=== PATIENT | male | born 1955 | race Two or more races ===

== ENCOUNTER 2019-10-09 20:29 | Emergency (ER) | payer MEDICAID, OTHER ==
[~2019-10-09] VITALS: Ht 177.8 cm; Wt 67.1 kg
--- NOTE | 2019-10-09 20:41 | NUR ---
PT FUAD C/O "ALTERED MENTAL STATUS" PER RA. PT KNOWS HIS NAME AND THE YEAR. WHEN ASKED WHO IS THE PRESIDENT PT REPLIED [employer]. PER REPORT PT WAS IN THE SUN ALL DAY AND FOUND WALKING AROUND. PLACED ON MONITOR AND PULSE OX. VSS. AWAITING MD FOR EVAL AND ORDERS.
[2019-10-09 20:57] LABS: BASOPHILS # (AUTO) 0.1 /CMM (0.0-0.2); BASOPHILS % (AUTO) 0.6 % (0.0-2.0); EOSINOPHILS % (AUTO) 1.5 % (0.0-6.0); HEMATOCRIT 40 % (39-51); HEMOGLOBIN 13.4 g/dL (13.5-17.5); LYMPHOCYTES # (AUTO) 1.6 /CMM (0.8-4.8); LYMPHOCYTES % (AUTO) 20.1 % (20.0-44.0); MEAN CORPUSCULAR HGB CONC 34 g/dl (31.0-36.0); MEAN CORPUSCULAR VOLUME 98 fL (80-96); MONOCYTES % (AUTO) 12.1 % (2.0-12.0); NEUTROPHILS # (AUTO) 5.4 /CMM (1.8-8.9); NEUTROPHILS % (AUTO) 65.7 % (43.0-81.0); PLATELET COUNT (AUTO) 218 /CMM (150-450); RED BLOOD CELL COUNT(AUTO) 4.06 MIL/uL (4.5-6.0); WHITE BLOOD COUNT (AUTO) 8.2 K/uL (4.3-11.0)
--- NOTE | 2019-10-09 21:10 | NUR ---
AWAITING URINE SAMPLE. PT STATED UNABLE TO URINATE DUE TO HIM DRINKING "MILK"
[2019-10-09 21:16] LABS: CALCIUM, SERUM 9.3 mg/dL (8.5-10.1); CARBON DIOXIDE 29 mmol/L (21-32); CHLORIDE 102 mmol/L (98-107); CREATININE 1.4 mg/dL (0.6-1.3); GLUCOSE 157 mg/dL (74-106); POTASSIUM 4.1 mmol/L (3.5-5.1); SODIUM SERUM 139 mmol/L (136-145); UREA NITROGEN, BLOOD 29 mg/dL (7-18)
--- NOTE | 2019-10-09 21:16 | NUR ---
BROUGHT TO CT
[2019-10-09 21:20] LABS: ALANINE AMINOTRANSFERASE 21 U/L (12-78); ALBUMIN 3.8 g/dL (3.4-5.0); ALCOHOL, BLOOD < 3 mg/dL (0-0); ALKALINE PHOSPHATASE 68 U/L (46-116); ASPARTATE AMINOTRANSFERASE 12 U/L (15-37); BILIRUBIN,DIRECT 0.1 mg/dL (0.0-0.2); BILIRUBIN,TOTAL 0.2 mg/dL (0.2-1.0); SALICYLATE 3.3 mg/dL (2.8-20.0); TOTAL PROTEIN, SERUM 7.4 g/dL (6.4-8.2)
[2019-10-09 21:23] LABS: ACETAMINOPHEN 0 ug/ml (10-30)
--- NOTE | 2019-10-09 22:15 | NUR ---
PT RESTING COMFORTABLY. VSS.
[2019-10-09 23:24] LABS: APPEARANCE,URINE Clear (CLEAR); BILIRUBIN,URINE Negative (NEGATIVE); BLOOD, URINE Moderate Ery/uL (NEGATIVE); COLOR,URINE Yellow (YELLOW); KETONES,URINE Negative (NEGATIVE); LEUKOCYTE ESTERASE ,URINE Negative (NEGATIVE); NITRITE, URINE Negative (NEGATIVE); PH,URINE 5.5 (5.0-8.0); PROTEIN,URINE Trace mg/dl (NEGATIVE); UGLUCOSE Negative (NEGATIVE); UROBILINOGEN,URINE 0.2 EU/dL (0.2)
--- NOTE | 2019-10-09 23:45 | NUR ---
Patient is resting comfortably in bed with eyes closed. Easily aroused. VSS
[2019-10-09 23:58] LABS: BACTERIA,URINE Few /HPF (None Seen); SQUAMOUS EPITHELIAL CELL,UR Few /HPF (None Seen); WBC,URINE 0-2 /HPF (0-3)
--- NOTE | 2019-10-10 02:18 | NUR ---
Patient is resting comfortably in bed with eyes closed. Easily aroused. VSS
--- NOTE | 2019-10-10 03:32 | NUR ---
PT GIVEN FOOD. AWAKE. RESPONSIVE. AMBUALTED TO THE RESTROOM.
--- NOTE | 2019-10-10 05:28 | NUR ---
PT AAOX4. KNOWS HIS NAME, , PREISDENT, AND MONTH. AMBULATED WITH STEAD GAIT.
--- NOTE | 2019-10-10 05:33 | NUR ---
PT ALERT AND ORIENTED. MEDICALLY CLEAR FOR D/C. AMBULATORY W/ STEADY GAITS. Patient discharged to home in stable condition. Written and verbal after care instructions given. Patient verbalizes understanding of instruction.
[2019-10-10 05:37] VITALS: BP 128/78
--- NOTE | 2019-10-10 05:37 | NUR ---
Patient discharged to home in stable condition. Written and verbal after care instructions given. Patient verbalizes understanding of instruction. Pt ambulated with steady gait. VSS.
== END 2019-10-10 05:38 | disposition home or self-care (01) ==
LOC: ER 20:30
DX: G93.40 Encephalopathy, unspecified (principal); R94.31 Abnormal electrocardiogram [ECG] [EKG]; Z88.8 Allergy status to other drugs, medicaments and biological substances
CPT/HCPCS: 36415; 70450; 71045; 80048; 80076; 80305; 80307; 80329; 81001; 84484; 85025; 93005; 99285; G0480; 81000-TC